=== PATIENT | female | born 1965 | race Caucasian/White ===

== ENCOUNTER → 2017-07-13 | Outpatient (REF) ==
[~2017-07-13] MED LIST: ATENOLOL50 MG PO; HCTZ 25MG25 MG PO; LOTREL 5 MG-201 CAP PO; VICODIN 5/5001 UDTAB PO
[2017-07-13 21:34] LABS: THYROID STIMULATING HORMONE 2.18 uIU/mL (0.465-4.680)
== END ==
LOC: ZLAB.WCH 20:37
PROVIDERS: Internal Medicine
DX: Z01.89 Encounter for other specified special examinations (principal)

== ENCOUNTER 2018-08-02 16:38 | Emergency (ER) | payer BC ==
[~2018-08-02] VITALS: Ht 167.6 cm; Wt 100.0 kg
[2018-08-02 16:47] VITALS: BP 166/88; TEMP 98.3
[2018-08-02] MEDS ORDERED: AMOXICILLIN 50500 MG PO (18:22)
[2018-08-02] MEDS ORDERED: NORCO 325 MG-51 TAB PO (18:22)
[2018-08-02 19:03] VITALS: PULSE 70
== END 2018-08-02 19:29 | disposition home or self-care (01) ==
LOC: COL.ER 16:38
DX: K02.9 Dental caries, unspecified (principal); I10 Essential (primary) hypertension

== ENCOUNTER → 2018-10-08 | Outpatient (REF) ==
[~2018-10-08] MED LIST changes: +AMOXICILLIN 50500 MG PO; +NORCO 325 MG-51 TAB PO
== END ==
LOC: ZLAB.WCH 19:54
DX: Z01.89 Encounter for other specified special examinations (principal)

== ENCOUNTER → 2024-01-14 | Outpatient (CLI) | payer OTHER | LOC: COL.VAS 08:33 | DX: I35.1 Nonrheumatic aortic (valve) insufficiency (principal) ==